=== PATIENT | male | born 1970 | race Caucasian/White ===

== ENCOUNTER 2017-07-01 13:23 | Emergency (ER) | payer OTHER ==
[~2017-07-01] VITALS: Ht 177.8 cm; Wt 100.3 kg
[2017-07-01 13:31] VITALS: BP 132/88
[2017-07-01] MEDS ORDERED: KETOROLAC 30 MG/1 ML IM ONE (14:00)
[2017-07-01] MEDS ORDERED: KETOROLAC 30 MG/1 ML ONE (14:10)
[2017-07-01 14:30] LABS: HEMATOCRIT 42.4 % (39.2-51.8); HEMOGLOBIN 15.1 g/dL (13.7-18.0); WHITE BLOOD COUNT 4.3 x10^3/uL (3.4-10)
[2017-07-01 14:35] LABS: BLOOD UREA NITROGEN 12 mg/dL (7-18)
== END 2017-07-01 15:22 | disposition home or self-care (01) ==
LOC: ED 14:34
DX: M13.172 Monoarthritis, not elsewhere classified, left ankle and foot (principal)
CPT/HCPCS: 36415; 73660; 80048; 82040; 84550; 85025; 96372; 99285; J1885

== ENCOUNTER → 2017-09-20 | Outpatient (CLI) | payer OTHER | END | disposition home or self-care (01) | LOC: CFH 08:17 | PROVIDERS: ATTEND Family Medicine | DX: N62 Hypertrophy of breast (principal) | CPT/HCPCS: 77066 ==